=== PATIENT | male | born 1990 | race Hispanic/Latino ===

== ENCOUNTER 2021-09-13 12:41 | Emergency (ER) | payer OTHER ==
[2021-09-13] MEDS ORDERED: Boostrix 0.5 ML (Tdap) VIAL ONE (14:11)
[2021-09-13] MEDS ORDERED: Lidocaine 1% MPF 2 ML VIAL ONE (15:00)
[2021-09-13] MEDS ORDERED: Lidocaine 1% (PF) 30 ML VIAL ONE (15:02)
[2021-09-13] MEDS ORDERED: Lidocaine 1% PF 5 ML VIAL ONE (15:03)
== END 2021-09-13 15:45 | disposition home or self-care (01) ==
LOC: ERS 12:41
DX: S61.215A Laceration without foreign body of left ring finger without damage to nail, initial encounter (principal); W25.XXXA Contact with sharp glass, initial encounter; Y92.009 Unspecified place in unspecified non-institutional (private) residence as the place of occurrence of the external cause; Z23 Encounter for immunization
CPT/HCPCS: 12001; 90471; 90715; J2001